=== PATIENT | male | born 2000 | race Hispanic/Latino ===

== ENCOUNTER 2024-01-06 02:34 | Emergency (ER) | payer OTHER ==
[2024-01-06] MEDS ORDERED: Ibuprofen 800 MG TAB ONE (02:49)
[2024-01-06] MEDS ORDERED: Acetaminophen 500 MG TAB ONE (02:49)
== END 2024-01-06 03:22 | disposition home or self-care (01) ==
LOC: MADERS 02:34
DX: S80.01XA Contusion of right knee, initial encounter (principal); S80.02XA Contusion of left knee, initial encounter; J06.9 Acute upper respiratory infection, unspecified; V89.2XXA Person injured in unspecified motor-vehicle accident, traffic, initial encounter; W22.11XA Striking against or struck by driver side automobile airbag, initial encounter
CPT/HCPCS: 99284